=== PATIENT | male | born 1995 | race Caucasian/White ===

== ENCOUNTER 2021-05-12 13:51 | Emergency (ER) | payer SELFPAY ==
[2021-05-12 13:52] VITALS: BP 95/76; PULSE 78; RESP 16; TEMP 36.1; O2SAT 100; BMI 24.7
--- NOTE | 2021-05-12 15:45 | EX.ED.UPPERE ---
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 He was seen at a local urgent care by nurse practitioner who obtained an x-ray, he said he was told there was no fracture, and he was diagnosed with subungual hematoma, they performed a trephination of his nail with an electrocautery device he states that it was unsuccessful and there was no blood obtained. He was placed on antibiotics and referred to a hand specialist as needed. Subsequently, he has had increased swelling and pressure and he presents to have it evaluated since he is going to be here in [place] for the next week. His tetanus was updated 3 days ago at that visit. Tetanus Immunization: <5 years [facility] Medical History no medical history no medical history Allergy/AdvReac Type Severity Reaction Status Date / Time No Known Allergies Allergy Verified 05/12/21 13:56 Social History Smoking Status: Never smoker ROS ROS ED Constitutional Constitutional ED: Denies chills or fever(s) Musculoskeletal Musculoskeletal: Reports extremity pain; Denies neck pain Integumentary Denies Abrasions, rash or wounds Neurologic Neurologic: Denies paresthesias or weakness EXAM Physical Exam Const Vital Signs: 05/12/21 13:52 Temperature 97 F L Temperature Source Temporal Pulse Rate 78 Respiratory Rate 16 Blood Pressure 95/76 Blood Pressure Mean 82 Pulse Ox 100 Oxygen Delivery Method Room Air Positive well nourished and well developed General Appearance ED: well developed and NAD Neck full ROM and supple Back/Spine normal ROM and normal to inspection Extremity Extremity Narrative: Swollen distal phalanx left thumb with large subungual hematoma visible, the rest of the nail is white in discoloration. There is no bleeding from any of these areas, the nail is currently intact and the cuticle at this time. The volar aspect of the fingertip is tender and more tense than normal without signs of infection/erythema, abscess, fluctuance. Limited range of motion with IPJ due to pain, but no tenderness vera or proximally. No lymphangitis. Neuro oriented x3, no focal motor deficits and no sensory deficits noted Sensorium / Orientation: alert Psych mental status grossly normal and thought process normal Skin no wounds Rashes: no rashes MDM MDM MDM Narrative Medical decision making narrative: Patient was amenable to my repeating trephination as he has a clear subungual hematoma, he understood the risk of failure. This resulted in drainage of a significant amount of blood and significant relief of his symptoms. Dressed with bacitracin and advised to follow-up with hand as needed and to continue the antibiotic. Procedures Other Procedures Procedure(s): Nail trephination left thumbnail-after prep with iodine/Betadine, a low temperature electrocautery device was used at the same site as the prior attempted trephination, this resulted in immediate mild active bleeding from the trephination site, the patient continued to milk blood from the area with gauze, resulting in significant improvement in his symptoms. Tolerated well no complications dressed with bacitracin afterwards. Discharge Plan Triage Chief Complaint: Upper Extremity Injury ED Provider: Mario Chase Dx/Rx/DC Orders Clinical Impression: Subungual hematoma of left thumb Instructions: ED Subungual Hematoma Primary Care Provider: Care Physician,Yolanda Primary Referrals: [facility] [Outside] - 3-5 Days if not improving (call for appt and ask for [facility]) NOT,DEFINED [NON-STAFF] - Disposition Disposition: Home, Self Care Discharge Date/Time: 05/12/21 16:05
== END 2021-05-12 16:05 | disposition home or self-care (01) ==
PROVIDERS: Emergency Provider Emergency Medicine
DX: S60.112A Contusion of left thumb with damage to nail, initial encounter (principal); W23.0XXA Caught, crushed, jammed, or pinched between moving objects, initial encounter; Y93.89 Activity, other specified; Y92.69 Other specified industrial and construction area as the place of occurrence of the external cause; Y99.9 Unspecified external cause status
CPT/HCPCS: 11740; 99282